=== PATIENT | female | born 1990 | race Caucasian/White ===

== ENCOUNTER 2020-11-14 12:09 | Outpatient (CLI) | payer OTHER, SELFPAY ==
--- NOTE | ~2020-11-14 | US_ITS ---
EXAMINATION: US pelvic complete w TV DATE: 11/14/2020 12:51 INDICATION: Dysmenorrhea Comparison:No prior studies for comparison. TECHNIQUE: Multiple transabdominal and endovaginal sonographic images of the pelvis performed. FINDINGS: The uterus measures 10 x 4.3 x 4.3 cm. The endometrial complex measures 6 mm. There are nab othian cysts. The right ovary measures 2.9 x 1.8 x 2.3 cm and the left ovary measures 2.9 x 1.2 x 1.2 cm. There ar e small follicles in each ovary. Normal doppler signal in both ovaries. There is no free fluid in the pelvis. There are no abnormal masses seen on either side. IMPRESSION: 1. Unremarkable pelvic ultrasound. Reviewed, dictated and finalized at location B.
== END 2020-11-14 12:10 | disposition home or self-care (01) ==
LOC: CHSIMG 12:15
PROVIDERS: PCP Family Medicine; Visit Provider Nurse Practitioner Psychiatric/Mental Health
DX: N94.6 Dysmenorrhea, unspecified (principal)
CPT/HCPCS: 76830; 76856

== ENCOUNTER 2021-02-17 08:55 | Outpatient (CLI) | payer OTHER, SELFPAY ==
[2021-02-17 09:42] LABS: SARS-CoV-2 Ag Positive (Negative)
== END 2021-02-17 08:56 | disposition home or self-care (01) ==
PROVIDERS: PCP Physician Assistant; Visit Provider Nurse Practitioner Psychiatric/Mental Health
DX: U07.1 COVID-19 (principal)
CPT/HCPCS: 87426; C9803

== ENCOUNTER 2021-03-24 14:05 | Outpatient (CLI) | payer OTHER, SELFPAY ==
[2021-03-24 14:52] LABS: Add Urine Microscopic? NO; Appearance Urine Clear (Clear); Bilirubin Urine Negative (Negative); Blood Urine Negative (Negative); Color Urine Light Yellow (Yellow); Glucose Urine UA Negative (Negative); Ketones Urine Negative (Negative); Leukocyte Esterase Ur Negative (Negative); Nitrate Urine Negative (Negative); Protein Urine Negative (Negative); Specific Grav Ur <= 1.005 (1.010-1.020); Urobilinogen Urine 0.2 mg/dL (0.2-1.0); pH Urine 6.5 (5.0-8.0)
[2021-03-24 14:53] LABS: Albumin Level 3.5 g/dL (3.4-5.0); Anion Gap 9 mmol/L (8-16); Blood Urea Nitrogen 17 mg/dL (7-18); Calcium 8.6 mg/dL (8.5-10.1); Carbon Dioxide 31 mmol/L (21-32); Chloride 98 mmol/L (98-108); Estimated Glomerular Filt Rate > 60; Glucose 81 mg/dL (70-99); Osmolality Calculated 286 mOsm/kg (285-295); Phosphorus 3.8 mg/dL (2.6-4.7); Potassium 3.5 mmol/L (3.5-5.1); Sodium 138 mmol/L (136-145)
== END 2021-03-24 14:06 | disposition home or self-care (01) ==
LOC: CHSLAB 14:08
PROVIDERS: PCP Family Medicine; Visit Provider Internal Medicine Nephrology
DX: N20.0 Calculus of kidney (principal)
CPT/HCPCS: 36415; 80069; 81003

== ENCOUNTER 2021-04-22 13:20 | Outpatient (CLI) | payer OTHER, SELFPAY ==
--- NOTE | ~2021-04-22 | US_ITS ---
EXAMINATION: US pelvic complete w TV DATE: 04/22/2021 13:51 INDICATION: Pelvic pain Comparison:11/14/2020 TECHNIQUE: Multiple transabdominal and endovaginal sonographic images of the pelvis performed. FINDINGS: The uterus measures 9.2 x 3.5 x 5.3 cm. The endometrial complex measures 3 mm. The right ovary measures 3.1 x 2.5 x 2 cm and the left ovary measures 3.5 x 1.9 x 1.9 cm. There are small follicles in each ovary. Normal doppler signal in both ovaries. There is free fluid in the pelvis. There are no abnormal masses seen on either side. IMPRESSION: 1. Unremarkable pelvic ultrasound. Reviewed, dictated and finalized at location B. OF BIOLOGY
== END 2021-04-22 13:21 | disposition home or self-care (01) ==
LOC: CHSIMG 13:22
PROVIDERS: PCP Physician Assistant; Visit Provider Nurse Practitioner Psychiatric/Mental Health
DX: R10.2 Pelvic and perineal pain (principal)
CPT/HCPCS: 76830; 76856

== ENCOUNTER 2022-03-04 15:43 | Outpatient (CLI) | payer OTHER, SELFPAY ==
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
== END 2022-03-04 15:44 | disposition home or self-care (01) ==
LOC: CHSIMG 15:46
PROVIDERS: PCP Physician Assistant; Visit Provider Registered Nurse
DX: M54.50 Low back pain, unspecified (principal); M79.601 Pain in right arm; M54.2 Cervicalgia
CPT/HCPCS: 72040; 72100; 73030; 73060

== ENCOUNTER 2022-03-13 17:05 | Outpatient (RCR) | payer OTHER, SELFPAY ==
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
--- NOTE | 2022-04-07 17:39 | PTOPDC ---
Assessment and note entered by Tessa Arguello DPT Evaluation Information Assessment Status Discharge Diagnosis Low back pain and neck pain Onset 03/09/2022 Subjective Information Pt reports continued pain in her R shoulder, neck, and back. She reports that she is still having a lot of difficulty at work and when performing chores at home. She reports that her pain is either the same as when she first came in for PT or slightly worse. Reported Pain Level Pain Score 7,4,5: Self Report Assessment PT Clinical Summary Pt presents to skilled PT after 8 visits of skilled PT over 4 weeks for her neck, R shoulder, and low back without significant improvements in pain, range of motion, and core stability since her initial evaluation. Due to no significant improvements in these deficits, pain, and quality of life since her initial evaluation, she is to be discharged from skilled PT at this time. Pt is likely to benefit from an MRI for her low back and shoulder to determine the most appropriate and effective POC going forward, and she is to follow- up with her MD as needed. Plan of Care PT Services Indicated No
== END 2022-04-07 16:37 | disposition home or self-care (01) ==
LOC: CHSPT 17:05
PROVIDERS: PCP Family Medicine; Visit Provider Registered Nurse
DX: M54.2 Cervicalgia (principal); M54.50 Low back pain, unspecified
CPT/HCPCS: 97014; 97110; 97140; 97162; G0283

== ENCOUNTER 2022-03-21 06:45 | Outpatient (CLI) | payer OTHER, SELFPAY ==
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
[2022-03-21 07:02] LABS: Appearance Urine Clear (Clear); Bilirubin Urine Negative (Negative); Blood Urine Negative (Negative); Glucose Urine UA Negative (Negative); Ketones Urine Negative (Negative); Leukocyte Esterase Ur Negative (Negative); Nitrate Urine Negative (Negative); Protein Urine Negative (Negative); Specific Grav Ur <= 1.005 (1.010-1.020); Urobilinogen Urine 0.2 mg/dL (0.2-1.0)
[2022-03-21 07:06] LABS: Add Urine Microscopic? NO; Color Urine Light Yellow (Yellow)
[2022-03-21 07:41] LABS: Albumin Level 3.7 g/dL (3.4-5.0); Anion Gap 4 mmol/L (8-16); Blood Urea Nitrogen 13 mg/dL (7-18); Calcium 8.4 mg/dL (8.5-10.1); Carbon Dioxide 34 mmol/L (21-32); Chloride 102 mmol/L (98-108); Estimated Glomerular Filt Rate > 60; Glucose 66 mg/dL (70-99); Osmolality Calculated 288 mOsm/kg (285-295); Phosphorus 3.9 mg/dL (2.6-4.7); Potassium 3.5 mmol/L (3.5-5.1); Sodium 140 mmol/L (136-145)
== END 2022-03-21 06:46 | disposition home or self-care (01) ==
LOC: CHSIMG 06:52
PROVIDERS: PCP Family Medicine; Visit Provider Registered Nurse
DX: M54.2 Cervicalgia (principal); N20.0 Calculus of kidney
CPT/HCPCS: 36415; 72141; 80069; 81003

== ENCOUNTER 2022-04-01 10:01 | Outpatient (CLI) | payer OTHER, SELFPAY ==
--- NOTE | ~2022-04-01 | US_ITS ---
EXAMINATION: US renal BI DATE: 04/01/2022 10:59 INDICATION: nephrolithiasis TECHNIQUE: Multiple grayscale and Doppler ultrasound images of the kidneys were obtained. COMPARISON: 03/03/2016 FINDINGS: The right kidney measures 11.1 x 5.4 x 5.9 cm. The left kidney measures 10.8 x 6.5 x 5.4 cm. The kidn eys demonstrate normal parenchymal echogenicity. There is no hydronephrosis. The bladder is normal. IMPRESSION: Unremarkable renal sonogram findings. Reviewed, dictated and finalized at location K. MANAGER
== END 2022-04-01 10:02 | disposition home or self-care (01) ==
LOC: CHSIMG 10:02
PROVIDERS: PCP Family Medicine
DX: N20.0 Calculus of kidney (principal)
CPT/HCPCS: 76775

== ENCOUNTER 2022-04-25 07:16 | Outpatient (CLI) | payer OTHER, SELFPAY ==
--- NOTE | ~2022-04-25 | MR_ITS ---
EXAMINATION: MR shoulder RT wo con DATE: 04/25/2022 08:56 INDICATION: Right shoulder pain, x2 months, since patient started PT on the neck. TECHNIQUE: Magnetic resonance imaging (MRI) of the right shoulder was performed without intravenous c ontrast. Sequences included axial PD-weighted FS FSE, coronal oblique PD-weighted FS FSE and T2-weigh estuardo FS FSE, and sagittal oblique T2-weighted FS FSE and T1-weighted FSE. COMPARISON: Right shoulder x-ray 03/04/2022. FINDINGS: Coracoacromial arch: Mild lateral downsloping of the type II acromion. No significant subacromial or subcoracoid narrowing . Rotator cuff: Intact. Biceps tendon and glenoid labrum: Long and short heads of the biceps tendon are intact. Glenoid labrum intact and normal in appearance. Fluid: Small volume fluid in the subacromial/subdeltoid bursa. Bones/cartilage: No suspicious focal or diffuse marrow signal. IMPRESSION: 1. Mild subacromial/subdeltoid bursitis. 2. Otherwise right shoulder MR findings. Reviewed, dictated and finalized at location K. F SOLUTION ARCHITECT
== END 2022-04-25 07:17 | disposition home or self-care (01) ==
LOC: CHSIMG 07:17
PROVIDERS: PCP Family Medicine; Visit Provider Registered Nurse
DX: M25.511 Pain in right shoulder (principal)
CPT/HCPCS: 73221

== ENCOUNTER 2022-05-30 06:51 | Outpatient (CLI) | payer OTHER, SELFPAY ==
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
== END 2022-05-30 06:52 | disposition home or self-care (01) ==
LOC: CHSIMG 06:52
PROVIDERS: PCP Registered Nurse; Visit Provider Registered Nurse
DX: M54.50 Low back pain, unspecified (principal); M43.17 Spondylolisthesis, lumbosacral region; M51.37 Other intervertebral disc degeneration, lumbosacral region
CPT/HCPCS: 72148

== ENCOUNTER 2022-06-29 18:15 | Outpatient (CLI) | payer OTHER, SELFPAY ==
[2022-06-29 18:50] LABS: Basophils Absolute Auto 0.03 K/mm3 (0.00-0.10); Basophils Percent Auto 0.5 % (0.0-1.0); Eosinophils Absolute Auto 0.16 K/mm3 (0.02-0.50); Eosinophils Percent Auto 2.7 % (1.0-6.0); Hematocrit 33.6 % (35.0-49.0); Hemoglobin 11.5 g/dL (12.0-15.0); Immature Granulocyte Absolute 0.01 K/mm3 (0.00-0.00); Immature Granulocyte Percent A 0.2 % (0.0-0.0); Lymphocytes Absolute Auto 2.66 K/mm3 (1.10-4.50); Lymphocytes Percent Auto 44.1 % (18.0-42.0); Mean Corpuscular HGB Conc 34.2 g/dL (32.0-36.0); Mean Corpuscular Hemoglobin 33.2 pg (27.0-31.0); Mean Corpuscular Volume 97.1 fL (78.0-102.0); Mean Platelet Volume 10.1 fl (9.2-11.8); Monocytes Absolute Auto 0.31 K/mm3 (0.10-0.90); Monocytes Percent Auto 5.1 % (2.0-11.0); Neutrophils Absolute Auto 2.9 K/mm3 (1.7-7.2); Neutrophils Percent Auto 47.4 % (50.0-70.0); Platelet Count Result 276 K/mm3 (150-420); Red Blood Count 3.46 M/mm3 (4.20-5.40)
[2022-06-29 18:53] LABS: Add Urine Microscopic? NO; Appearance Urine Clear (Clear); Bilirubin Urine Negative (Negative); Blood Urine Negative (Negative); Color Urine Light Yellow (Yellow); Glucose Urine UA Negative (Negative); Ketones Urine Negative (Negative); Leukocyte Esterase Ur Negative (Negative); Nitrate Urine Negative (Negative); Protein Urine Negative (Negative); Urobilinogen Urine 0.2 mg/dL (0.2-1.0)
[2022-06-29 20:10] LABS: Alanine Aminotransferase 19 U/L (14-59); Albumin Level 3.7 g/dL (3.4-5.0); Alkaline Phosphatase 70 U/L (46-116); Anion Gap 5 mmol/L (8-16); Aspartate Amino Transferase 17 U/L (15-37); Bilirubin,Total 0.2 mg/dL (0.00-1.00); Blood Urea Nitrogen 9 mg/dL (7-18); Calcium 8.1 mg/dL (8.5-10.1); Carbon Dioxide 32 mmol/L (21-32); Chloride 104 mmol/L (98-108); Estimated Glomerular Filt Rate > 60; Glucose 79 mg/dL (70-99); Magnesium 1.7 mg/dL (1.8-2.4); Osmolality Calculated 289 mOsm/kg (285-295); Phosphorus 3.6 mg/dL (2.6-4.7); Potassium 3.5 mmol/L (3.5-5.1); Sodium 141 mmol/L (136-145); Total Protein 7.2 g/dL (6.4-8.2); Uric Acid 3.5 mg/dL (2.6-6.0)
[2022-06-30 10:37] LABS: Creatinine Urine 27.74 mg/dL (40-278)
[2022-06-30 11:06] LABS: Total Protein Urine Random < 6.0 mg/dL (0.0-11.9); Ur Ttl Prot Creatinine Ratio 0.22 mg/mg (0-0.20)
[2022-07-02 17:23] LABS: Vitamin D 25 Hydroxy 30 ng/mL (30-100)
== END 2022-06-29 18:16 | disposition home or self-care (01) ==
LOC: CHSLAB 18:26
DX: N20.0 Calculus of kidney (principal)
CPT/HCPCS: 36415; 80053; 81003; 82306; 82570; 83735; 84100; 84156; 84166; 84550; 85025